=== PATIENT | female | born 1950 | race Caucasian/White ===

== ENCOUNTER 2019-09-14 17:15 | Emergency (ER) ==
[2019-09-14] MEDS ORDERED: Bupivacaine 0.5% 10 ML VIAL ONE (17:45)
[2019-09-14] MEDS ORDERED: Lidocaine 1% PF 5 ML VIAL ONE (17:51)
[2019-09-14] MEDS ORDERED: Betamet Acet/Betamet Na Ph 30 MG/5 ML VIAL IM SCH (18:00)
--- NOTE | 2019-09-30 06:01 | PQF ---
[facility] POST DISCHARGE CLINICAL DOCUMENTATION IMPROVEMENT CLARIFICATION FORM l Todays Date: 09/29/2019 l Patients Name Zo Bradshaw l l Admit Date 09/14/2019 l Disch Date 09/14/2019 Electrical Engineering Technician Name Bret John Email: [email or web address]: [phone] To be completed by Electrical Engineering Technician: Present Clinical Indicators - Signs / Symptoms Results and Location in Medical Record [ ] Documentation of: [ ] [ ] Documentation of: [ ] [ ] Documentation of: [ ] [ ] Documentation of: [ ] [ ] Risks [ ] [ ] [ ] Treatment [x] Trigger finger release Need Trigger finger Incision procedure note [ ] [ ] To be completed by Physician: DR. Chema MD, [facility] The documentation in this patients record requires clarification to ensure coding compliance and accuracy. Check the appropriate box and include in your discharge summary. [ ] [ ] [ ] [ ] Please check this box if this does not apply to this patient [ ] Unable to determine [ ] Other diagnosis: Review the following information and exercise your independent professional judgment in responding to the clarification. Based upon the clinical findings, risk factors, and treatment, please clarify if you are treating one of the above probable or suspected diagnoses. Physician Signature: Date Time MTDD
== END 2019-09-14 18:49 | disposition home or self-care (01) ==
LOC: ERS 17:15 → ER/OP 17:15
DX: M65.841 Other synovitis and tenosynovitis, right hand (principal); I10 Essential (primary) hypertension; E78.00 Pure hypercholesterolemia, unspecified; F17.210 Nicotine dependence, cigarettes, uncomplicated; M81.0 Age-related osteoporosis without current pathological fracture; Z79.899 Other long term (current) drug therapy
CPT/HCPCS: 99281; J0702; J2001; J3490

== ENCOUNTER 2019-09-15 14:12 | Day surgery (SDC) | payer MEDICARE, OTHER ==
[~2019-09-15 14:12] MED LIST: Dexamethasone 20 MG/5 ML VIAL ONE; Ketorolac Tromethamine 30 MG/ML VIAL ONE; Lidocaine 1% PF 5 ML VIAL ONE; Metoclopramide HCl 10 MG/2 ML VIAL ONE; Ondansetron PF 4 MG/2 ML Vial ONE; PHENYLEPHRINE-NS 100 MCG/ML 10 ML SYRINGE ONE; PROPOFOL 200 MG/20 ML VIAL ONE
[2019-09-15 15:24] LABS: Anion Gap 13 mmol/L (10-20); BUN (Urea Nitrogen) 16 mg/dL (9.8-20.1); Calc. Creatinine Clearance 0 mL/min (70-130); Carbon Dioxide 24 mmol/L (23-31); Chloride 101 mmol/L (98-107); Estimated GFR-MDRD 64; Glucose 127 mg/dL (80-115); Potassium 4.2 mmol/L (3.5-5.1); Sodium 134 mmol/L (136-145)
[2019-09-15 15:33] LABS: Hemoglobin 14.9 g/dL (12.0-16.0); Mean Corpuscular HGB CONC 32.9 g/dL (32.0-36.0); Mean Corpuscular Volume 94.3 fL (78.0-98.0); Mean Platelet Volume 7.5 fL (7.4-10.4); Platelet Count 321 thou/uL (130-400); RBC Distribution Width 11.7 % (11.5-14.5); Red Blood Cell (RBC) Count 4.81 mill/uL (4.20-5.40); White Blood Cell (WBC) Count 22.8 thou/uL (4.8-10.8)
[2019-09-15 15:37] LABS: Band 11 % (5-11); Lymphocytes 9 % (21-51); MDiff Complete? YES; Monocytes 1 % (0-10); Neutrophil 71 % (42-75); Platelet Morphology Comment Appears Adequate; RBC Morphology Normal; Reactive Lymphocytes 8 % (0-10)
[2019-09-15] MEDS ORDERED: Bupivacaine PF 0.5% 30 ML VIAL ONE (16:27)
[2019-09-15] MEDS ORDERED: Sodium Chloride 0.9% 0 ML ONE (16:27)
[2019-09-15] MEDS ORDERED: Betamet Acet/Betamet Na Ph 30 MG/5 ML VIAL ONE (16:27)
[2019-09-15] MEDS ORDERED: Bacitracin Zinc Ointment 30 gm TUBE ONE (16:27)
[2019-09-15] MEDS ORDERED: Fentanyl 100 MCG/2 ML VIAL ONE (16:33)
[2019-09-15] MEDS ORDERED: Famotidine/PF 20 mg/2ml Vial ONE (16:33)
--- NOTE | 2019-09-15 18:23 | RAD ---
Exam: Chest one view HISTORY:PACU patient. Pain. Comparison: None FINDINGS: Cardiac silhouette: Normal Aorta: Atherosclerosis Pulmonary vessels: Normal Costophrenic angles: Clear LUNGS: No masses or consolidation. Pneumothorax: None Osseous abnormalities: None IMPRESSION: No acute cardiopulmonary process. Atherosclerosis
[2019-09-15 18:32] LABS: #Lymphocytes 2.2 thou/uL (1.20-3.40); #Monocytes 0.8 thou/uL (0.11-0.59); #Neutrophils 18.6 thou/uL (1.40-6.50); %Basophils 0.2 % (0.0-1.0); %Eosinophils 0.1 % (0.0-10.0); %Lymphocytes 10.3 % (21.0-51.0); %Monocytes 3.6 % (0.0-10.0); %Neutrophils 85.8 % (42.0-75.0); Hemoglobin 14.1 g/dL (12.0-16.0); Mean Corpuscular HGB CONC 32.9 g/dL (32.0-36.0); Mean Corpuscular Hemoglobin 31.3 pg (27.0-31.0); Mean Corpuscular Volume 94.9 fL (78.0-98.0); Mean Platelet Volume 7.5 fL (7.4-10.4); Platelet Count 293 thou/uL (130-400); RBC Distribution Width 11.8 % (11.5-14.5); Red Blood Cell (RBC) Count 4.53 mill/uL (4.20-5.40); White Blood Cell (WBC) Count 21.6 thou/uL (4.8-10.8)
[2019-09-15 19:24] LABS: Bilirubin Negative (Negative); Blood, Urine Negative (Negative); Clarity Clear (Clear); Glucose, Urine (Dipstick) Normal (Negative); Leukocyte Negative Leu/uL (Negative); Nitrite Negative (Negative); Protein, Urine (Dipstick) Negative (Neg-Trace); Urobilinogen Normal mg/dL (Less than 2)
--- NOTE | 2019-09-16 01:38 | OP ---
DATE OF PROCEDURE: 09/15/2019 PREOPERATIVE DIAGNOSES: 1. Right middle finger tenosynovitis without infection. 2. Right middle finger trigger digit. POSTOPERATIVE DIAGNOSES: 1. Right middle finger tenosynovitis without infection. 2. Right middle finger trigger digit. FINDINGS: Very tight A1 mine with thick, noninfectious tenosynovitis, flexor digitorum profundus, and superficialis. PROCEDURES PERFORMED: 1. Right middle finger trigger digit release. 2. Right middle finger radical flexor tenosynovectomy. SPECIMENS REMOVED: 1. Possible cord of early Dupuytren's. 2. Tenosynovitis. All sent to the lab as specimen. INDICATIONS FOR PROCEDURE: The patient was evaluated by me, Dr. Bear, in the emergency room one day prior after having the long finger, in the clinic. Evaluated first by my partner, Dr. Pinto, we were contacted and told the patient to come to emergency room and have injection to try to free the tendon. Once this was done, once the patient arrived, we achieved appropriate solution and under sterile prep, she did undergo injection with Celestone and Marcaine, but this failed to relieve her locking. Thus, she is schedule for surgery today. DESCRIPTION OF PROCEDURE: After successful general endotracheal anesthesia, the limb was prepped and draped. The patient had a 15 mL block just beginning 1 cm proximal to the surgical incision, which was in line with the flexion crease that ends at the ring finger and goes all the way to the small finger. The incision was only 1 cm wide, carried through skin and subcutaneous tissue, then identified the digital nerve branches and we protected them. The tendon lining or synovium was very thick, so we performed a radical flexor tenosynovectomy and the specimen of which was sent to the lab. Also the patient had evaluation closely and here we decided to first release the A1 mine in the midline, so with the research lab assistant holding two Tamera Rakes, we did this with [place] blade under direct visualization, even releasing the proximal 1 to 2 mm of the A1 mine because it was flattened. We then elevated each tendon, flexor digitorum profundus first, and freed the thickened lining of the tendon, especially the joint line. Finally, we saw some very thick connective tissue, white pearly, consistent with early synechiae and also possible early Dupuytren's. So, we sent this specimen to the lab along with the tenosynovectomy. The patient then had the tenosynovectomy completed, had the wound drip technique with flexion and extension by me with the anti-inflammatory liquid. The patient then had tourniquet deflated, obtained hemostasis, and closed the wound with interrupted 4-0 nylon in a mattress pattern. Bulky dressing was applied. The patient left the operating room, where 3 hours later, she had no pain. Job ID: [id number]
== END 2019-09-15 20:15 | disposition home or self-care (01) ==
LOC: SDC 14:12
PROVIDERS: ATTEND Orthopaedic Surgery Hand Surgery
PROC: 0LN70ZZ Release Right Hand Tendon, Open Approach (ICD-10-PCS; principal; 2019-09-15)
PROC: 0LB70ZZ Excision of Right Hand Tendon, Open Approach (ICD-10-PCS; 2019-09-15)
DX: M65.331 Trigger finger, right middle finger (principal); M65.9 Synovitis and tenosynovitis, unspecified; Z88.5 Allergy status to narcotic agent
CPT/HCPCS: 36415; 71045; 80048; 81003; 82150; 83690; 85025; 85652; 87086; 88304; 93005; 93010; J0690; J0702; J1100; J1885; J2001; J2405; J2704; J2765; J3010; J3490; S0020; S0028